=== PATIENT | female | born 1990 | race Two or more races ===

== ENCOUNTER 2017-01-30 21:15 | Emergency (ER) | payer OTHER ==
--- NOTE | 2017-01-30 21:33 | PDOC ---
History of Present Illness - General History Source: Patient Exam Limitations: No Limitations - History of Present Illness Initial Comments: 01/30/17 21:33 The patient is a 26 year old female with no significant past medical history, who presents to the ED with Band-like pain around the back and to the abdomen. Patient claims there is numbness down the front and back of her legs as well. Patient states she was having similar pain when she was . Denies fever, chills, nausea, vomiting, diarrhea. Denies dysuria, frequency, hematuria. <Ford Stock - Last Filed: 01/30/17 21:33> - General History Source: Patient Exam Limitations: No Limitations <Edgard Brandt - Last Filed: 01/31/17 05:51> - General Chief Complaint: Back Pain Stated Complaint: LEFT LOWER BACK PAIN Time Seen by Provider: 01/30/17 21:33 Past History <Ford Stock - Last Filed: 01/30/17 21:33> - Past Medical History Asthma: Yes Suicide Attempt (Hx): No - Reproductive History Therapeutic (s) & number: No - Immunization History Immunization Up to Date: Yes - Psycho/Social/Smoking Cessation Hx Anxiety: No Suicidal Ideation: No Smoking History: Never smoked Have you smoked in the past 12 months: No Hx Alcohol Use: No Drug/Substance Use Hx: No Substance Use Type: None <Edgard Brandt - Last Filed: 01/31/17 05:51> - Past Medical History Allergies/Adverse Reactions: Allergies Allergy/AdvReac Type Severity Reaction Status Date / Time amoxicillin Allergy Severe Difficulty Verified 08/30/16 18:05 Breathing shellfish derived Allergy Severe Difficulty Verified 08/30/16 18:05 Breathing ibuprofen Allergy Mild Rash Verified 08/30/16 18:05 Home Medications: Ambulatory Orders NK [No Known Home Medication] 06/18/15 Review of Systems - Review of Systems Able to Perform ROS?: Yes Comments:: 01/30/17 21:33 GENERAL/CONSTITUTIONAL: No fever or chills. No weakness. HEAD, EYES, EARS, NOSE AND THROAT: No change in vision. No ear pain or discharge. No sore throat. CARDIOVASCULAR: No chest pain or shortness of breath. RESPIRATORY: No cough, wheezing, or hemoptysis. GASTROINTESTINAL: No nausea, vomiting, diarrhea or constipation. GENITOURINARY: No dysuria, frequency, or change in urination. MUSCULOSKELETAL: No joint or muscle swelling or pain. No neck or back pain. SKIN: No rash NEUROLOGIC: No headache, vertigo, loss of consciousness, or change in strength/ sensation. ENDOCRINE: No increased thirst. No abnormal weight change. HEMATOLOGIC/LYMPHATIC: No anemia, easy bleeding, or history of blood clots. ALLERGIC/IMMUNOLOGIC: No hives or skin allergy. <Ford Stock - Last Filed: 01/30/17 21:33> - Review of Systems All Other Systems: Reviewed and Negative <Edgard Brandt - Last Filed: 01/31/17 05:51> *Physical Exam - Physical Exam Comments: 01/30/17 21:34 GENERAL: Awake, alert, and fully oriented, in no acute distress HEAD: No signs of trauma EYES: PERRLA, EOMI, sclera anicteric, conjunctiva clear ENT: Auricles normal inspection, hearing grossly normal, nares patent, oropharynx clear without exudates. Moist mucosa NECK: Normal ROM, supple, no lymphadenopathy, JVD, or masses LUNGS: Breath sounds equal, clear to auscultation bilaterally. No wheezes, and no crackles HEART: Regular rate and rhythm, normal S1 and S2, no murmurs, rubs or gallops ABDOMEN: Soft, nontender, normoactive bowel sounds. No guarding, no rebound. No masses EXTREMITIES: Normal range of motion, no edema. No clubbing or cyanosis. No cords, erythema, or tenderness NEUROLOGICAL: Cranial nerves II through XII grossly intact. Normal speech, normal gait SKIN: Warm, Dry, normal turgor, no rashes or lesions noted. <Ford Stock - Last Filed: 01/30/17 21:33> - Physical Exam Female Pelvic Exam: positive: normal external exam, cervical os closed, adnexal tenderness, other (l adnexal tenderness). negative: normal adnexa, normal size ovaries, CMT, discharge <Edgard Brandt - Last Filed: 01/31/17 05:51> Medical Decision Making - Medical Decision Making 01/31/17 05:50 POCUS- several small cysts in left ovary, largest 1.0 cm a/p ovarian cyst nsaid <Edgard Brandt - Last Filed: 01/31/17 05:51> *DC/Admit/Observation/Transfer - Attestations Scribe Attestion: 01/30/17 21:34 Documentation prepared by Ford Stock, acting as medical insurance biller for Edgard Brandt MD. <Ford Stock - Last Filed: 01/30/17 21:33> <Edgard Brandt - Last Filed: 01/31/17 05:51> Diagnosis at time of Disposition: Cyst - Discharge Dispostion Disposition: HOME Condition at time of disposition: Good - Patient Instructions Printed Discharge Instructions: DI for Ovarian Cyst
[2017-01-30 21:42] VITALS: BP 124/93; PULSE 104; TEMP 99; BMI 38.1
[2017-01-30] MEDS ORDERED: ACETAMINOPHEN 500 MG TABLET (FP) PO ONE (22:40)
[2017-01-30] MEDS ORDERED: ACETAMINOPHEN 325 MG TABLET (FP) ONE (22:42)
== END 2017-01-30 22:49 | disposition home or self-care (01) ==
LOC: FER 21:15
DX: N83.209 Unspecified ovarian cyst, unspecified side (principal); J45.909 Unspecified asthma, uncomplicated
CPT/HCPCS: 84703; 99282-25

== ENCOUNTER 2018-03-02 22:09 | Emergency (ER) | payer OTHER ==
--- NOTE | 2018-03-02 22:13 | PDOC ---
History of Present Illness - General Chief Complaint: Pain Stated Complaint: FLANK PAIN - History of Present Illness Initial Comments: 03/02/18 23:24 Pt presents to the ED complaining of the acute onset of sharp, pleuritic chest pain. Pain is worse with deep breath or cough, and is primarily located in her upper back. Also complains of upper respiratory infection with nasal congestion , sore throat and subjective fevers. History of asthma. States that she has been using her inhaler more recently, although she has not felt that her asthma was bothering her today. Past History - Past Medical History Allergies/Adverse Reactions: Allergies Allergy/AdvReac Type Severity Reaction Status Date / Time amoxicillin Allergy Severe Difficulty Verified 08/30/16 18:05 Breathing shellfish derived Allergy Severe Difficulty Verified 08/30/16 18:05 Breathing ibuprofen Allergy Mild Rash Verified 08/30/16 18:05 latex Allergy Verified 03/02/18 22:17 Home Medications: Ambulatory Orders Multivitamins [Tab-A-Vit -] 1 tab PO DAILY 03/02/18 Asthma: Yes - Reproductive History Therapeutic (s) & number: No - Immunization History Immunization Up to Date: Yes - Suicide/Smoking/Psychosocial Hx Smoking History: Never smoked Have you smoked in the past 12 months: No Hx Alcohol Use: No Drug/Substance Use Hx: No Substance Use Type: None Review of Systems - Review of Systems Able to Perform ROS?: Yes Is the patient limited Vincentian proficient: No Constitutional: Yes: Chills, Fever HEENTM: No: Symptoms Reported, See HPI, Eye Pain, Blurred Vision, Tearing, Recent change in vision, Double Vision, Cataracts, Ear Pain, Ocular Prothesis, Ear Discharge, Nose Pain, Nose Congestion, Tinnitus, Nose Bleeding, Hearing Loss , Throat Pain, Throat Swelling, Mouth Pain, Dental Problems, Difficulty Swallowing, Mouth Swelling, Other Respiratory: Yes: Cough. No: Symptoms reported, See HPI, Orthopnea, Shortness of Breath, SOB with Exertion, SOB at Rest, Stridor, Wheezing, Productive cough, Hemoptysis, Other Cardiac (ROS): Yes: Chest Pain. No: Symptoms Reported, See HPI, Edema, Irregular Heart Rate, Lightheadedness, Palpitations, Syncope, Chest Tightness, Other ABD/GI: No: Symptoms Reported, See HPI, Abdominal Distended, Abd. Pain w/ defecation, Blood Streaked Bowels, Constipated, Diarrhea, Difficulty Swallowing , Nausea, Poor Appetite, Poor Fluid Intake, Rectal Bleeding, Vomiting, Indigestion, Abdominal cramping, Tarry Stools, Other : No: Symptoms Reported, See HPI, Burning, Dysuria, Discharge, Frequency, Flank Pain, Hematuria, Incontinence, Pain, Urgency, Testicular Mass, Testicular Swelling, Lesions, Testicular Pain, Other Musculoskeletal: No: Symptoms Reported, See HPI, Back Pain, Gout, Joint Pain, Joint Swelling, Muscle Pain, Muscle Weakness, Neck Pain, Joint Stiffness, Other Neurological: No: Symptoms reported, See HPI, Headache, Numbness, Paresthesia, Pre-Existing Deficit, Seizure, Tingling, Tremors, Weakness, Unsteady Gait, Ataxia, Dizziness, Other Psychiatric: No: Anxiety, Depression, Frequent Crying, Stressors, Sleep Pattern Change, Emotional Problems, Mood Swings, Change in Appetite, Other *Physical Exam - Physical Exam General Appearance: Yes: Nourished, Appropriately Dressed. No: Apparent Distress, Disheveled, Mild Distress, Moderate Distress, Severe Distress, Alcohol on Breath, Intoxicated, Cachetic, Obese, Thin, Other HEENT: positive: Normal ENT Inspection, Normal Voice, Pharynx Normal. negative : EOMI, DEAN, Symmetrical, TMs Normal, Scleral Icterus (R), Muffled/Hoarse voice , Pharyngeal Erythema, Tonsillar Exudate, Tonsillar Erythema, Nasal Congestion, Rhinorrhea, Sinus Tenderness, Orbits, Hearing Decreased, Hearing Grossly Normal , TM Bulging, TM Dull, TM Erythema, Lesions, Le, Excessive drooling, Thrush, Other Neck: negative: Tender, Trachea midline, Normal Thyroid, Rigid, Supple, Carotid bruit, Decreased range of motion, Stridor, Lymphadenopathy (R), Lymphadenopathy (L), Rigidity, Tender lateral, Tender midline, Thyromegaly, Other Respiratory/Chest: positive: Chest Tender (tenderness in posterior chest wall), Lungs Clear, Normal Breath Sounds Cardiovascular: positive: Regular Rhythm, Regular Rate, S1, S2. 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 Denies shortness of breath. Tachycardia resolved after pain control. Patient is extremely low risk for ACS or PE. Pain is most likely musculoskeletal. Will discharge home with instructions to follow up with her PMD./ *DC/Admit/Observation/Transfer Diagnosis at time of Disposition: Chest pain Qualifiers: Chest pain type: chest pain on breathing Qualified Code(s): R07.1 - Chest pain on breathing; R07.81 - Pleurodynia - Discharge Dispostion Disposition: HOME Condition at time of disposition: Good Decision to Admit order: No - Referrals - Patient Instructions Printed Discharge Instructions: DI for Atypical Chest Pain Additional Instructions: return to the ED for severe chest pain or shortness of breath, passing out, other new or worsening symptoms. - Post Discharge Activity
[2018-03-02 22:22] VITALS: BP 138/82; TEMP 98.9; BMI 34.1
[2018-03-02 22:23] LABS: HCG,QUALITATIVE URINE Negative
[2018-03-02 22:25] LABS: PH,URINE 5.5 (4.5-8); URINE BILIRUBIN 1+ (NEGATIVE); URINE GLUCOSE (UA) Negative (NEGATIVE); URINE KETONE 2+ (NEGATIVE); URINE LEUK ESTERASE Negative (NEGATIVE); URINE NITRITE Negative (NEGATIVE); URINE UROBILINOGEN 0.2 (0.2-1.0)
[2018-03-02 22:26] LABS: URINE APPEARANCE CLOUDY; URINE COLOR YELLOW; URINE PROTEIN 2+ (NEGATIVE)
[2018-03-02 22:28] LABS: URINE RBC MANY /hpf (0-3)
[2018-03-02 22:29] LABS: EPI CELLS FEW /HPF; URINE BACTERIA MODERATE /hpf (NEGATIVE)
[2018-03-02] MEDS ORDERED: diphenhydrAMINE HCL 50 MG CAPSULE PO ONE (23:20)
[2018-03-02 23:25] VITALS: PULSE 84
== END 2018-03-03 00:13 | disposition home or self-care (01) ==
LOC: FER 22:09
DX: R07.1 Chest pain on breathing (principal); R07.81 Pleurodynia
CPT/HCPCS: 71046-TC-FY; 81003; 81015; 84703; 99282-25